=== PATIENT | male | born 1955 ===

== ENCOUNTER 2019-06-23 07:27 | Inpatient (IN) | payer BC ==
[~2019-06-23 07:27] MED LIST: Acetaminophen TAB* 325 MG PO ONE; Buffered Lidocaine 1% SYRIN* 1 ML/SYRINGE INTRADERM ONE; Famotidine TAB* 20 MG PO ONE; Gabapentin CAP(*) 300 MG PO ONE; Lactated Ringers 1000 ML Bag* 1,000 ML IV SCH; Tranexamic Acid 1,000 MG in NS 0.9% 50 ML* (outpatient use) IV SCH; celeCOXIB CAP* 200 MG PO ONE
--- OUTSIDE RECORDS SUMMARY | 2019-06-23 07:32 | XMS REPORT | Continuity of Care Document ---
:1955 External Reference #:[id number] Author Name Florentino Alvarenga M.D. (transmitted by agent of provider Soheila Aguilera) Address [address] [place] [address] Care Team Providers Name Role Phone Rik Branch MD - Internal Care Team Information [employer] Medicine Problems Active Problems Provider Date Localized, secondary osteoarthritis Florentino Alvarenga M.D. Onset: 11/22/2018 Social History Type Date Description Comments Sex Unknown ETOH Use Drinks Alcoholic Beverages Occasionally Tobacco Use Start: Unknown Patient has never smoked Smoking Status Reviewed: 04/25/19 Patient has never smoked Exercise Type/Frequency Exercises sporadically Allergies, Adverse Reactions, Alerts Description No Known Drug Allergies Medications Active Medications SIG Qnty Indications Ordering Provider Date Right Knee Professor Of History Bone on bone in 1units M17.31 Florentino Alvarenga, 2018 Brace lateral M.D. compartment, so night order selector to open laterally Ibuprofen 2 tabs by mouth Unknown 200mg every 8 hours take Tablets with food Rossy [facility] [employer] Unknown 500-32.5mg Tablets Naproxen 2 by mouth twice a Unknown 250mg day Tablets Immunizations Description No Information Available Vital Signs Date Vital Result Comment 04/25/2019 10:24am Height 69 inches 5'9" Weight 256.12 lb Heart Rate 91 /min BP Systolic Sitting 144 mmHg BP Diastolic Sitting 90 mmHg Body Temperature 98.4 F BMI (Body Mass Index) 37.8 kg/m2 11/22/2018 12:55pm Height 69 inches 5'9" Weight 254.00 lb Heart Rate 80 /min BP Systolic Recheck 130 mmHg BP Diastolic Recheck 76 mmHg Respiratory Rate 16 /min Body Temperature 97.5 F BMI (Body Mass Index) 37.5 kg/m2 Results Description No Information Available Procedures Description No Information Available Medical Devices Description No Information Available Encounters Type Date Location Provider Dx Diagnosis Office Visit 11/22/2018 Orthopedic Florentino Alvarenga, [email or web address] Unilateral 1:00[facility] [place] post-traumatic [place] osteoarthritis, right knee Assessments Date Code Description Provider 04/25/2019 [email or web address] Unilateral post-traumatic osteoarthritis, Florentino Alvarenga M.D. right knee 11/22/2018 M17.31 Unilateral post-traumatic osteoarthritis, Florentino Alvarenga M.D. right knee Plan of Treatment 04/25/2019 - Florentino Alvarenga M.D.M17.31 Unilateral post-traumatic osteoarthritis , right kneeFollow up:4 weeks after surgery Functional Status Description No Information Available Mental Status Description No Information Available Referrals Description No Information Available
[2019-06-23] MEDS ORDERED: Acetaminophen TAB* 325 MG ONE (08:27)
[2019-06-23] MEDS ORDERED: Famotidine TAB* 20 MG ONE (08:27)
[2019-06-23] MEDS ORDERED: Gabapentin CAP(*) 300 MG ONE (08:27)
[2019-06-23] MEDS ORDERED: ceFAZolin 2 GM in NS PREMIX(*) 2 GM/100 ML BAG IVPB ONE (08:28)
[2019-06-23] MEDS ORDERED: celeCOXIB CAP* 200 MG ONE (08:28)
[2019-06-23] MEDS ORDERED: Buffered Lidocaine 1% SYRIN* 1 ML/SYRINGE INTRADERM ONE (09:18)
[2019-06-23] MEDS ORDERED: Midazolam* 1 MG/ML 5 ML VIAL (5 MG) ONE (09:51)
[2019-06-23] MEDS ORDERED: fentaNYL* 50 MCG/ML 2 ML VIAL (100 MCG VIAL) ONE ×2 (09:51)
[2019-06-23] MEDS ORDERED: Propofol* 500 MG/50 ML BTL ONE (09:51)
[2019-06-23] MEDS ORDERED: Lidocaine 1% w EPI 1:100,000* MDV 20 ML VIAL ONE (10:59)
[2019-06-23] MEDS ORDERED: Bupivacaine 0.5%* 50 ML MDV VIAL ONE (10:59)
[2019-06-23] MEDS ORDERED: Sodium Citrate/Citric Acid* 15 ML UDC ONE (11:02)
[2019-06-23] MEDS ORDERED: ROPIVACAINE 5 MG/ML 30 ML BTL (0.5%) ONE (11:06)
[2019-06-23] MEDS ORDERED: EPHEDrine (Pressors)* 50 MG/ML VIAL ONE (12:00)
[2019-06-23] MEDS ORDERED: Propofol* 10 MG/ML 20 ML BTL ONE (12:59)
[2019-06-23] MEDS ORDERED: diPHENhydraMINE PO* 25 MG PO PRN (14:29)
[2019-06-23] MEDS ORDERED: Magnesium Hydroxide LIQ* 30 ML UDC PO PRN (14:29)
[2019-06-23] MEDS ORDERED: Cyclobenzaprine TAB* 10 MG PO PRN (14:29)
[2019-06-23] MEDS ORDERED: diPHENhydraMINE IV* 50 MG/ML 1 ml VIAL (BENADRYL) IV PRN (14:29)
[2019-06-23] MEDS ORDERED: Ondansetron INJ* 2 MG/ML VIAL IV PRN (14:29)
[2019-06-23] MEDS ORDERED: Ondansetron ODT TAB* 4 MG PO PRN (14:29)
[2019-06-23] MEDS ORDERED: Morphine INJ* 2 MG/ML 1 ML SYRINGE (TWO MG - NEW SYRINGE VERSION) IV PRN (14:29)
[2019-06-23] MEDS ORDERED: D5W 1/2 NS 1000 ML BAG* 1,000 ML IV SCH (15:00)
[2019-06-23] MEDS ORDERED: Ondansetron INJ* 2 MG/ML VIAL ONE (16:31)
[2019-06-23] MEDS ORDERED: Warfarin TAB(*) 10 MG PO ONE (17:00)
[2019-06-23] MEDS: oxyCODONE TAB* 5 MG TAB PO PRN ×2 (18:37→23:26)
[2019-06-23] MEDS: Ketorolac INJ* 30 MG/ML 1 ML VIAL IV PRN (19:23)
[2019-06-23] MEDS: ceFAZolin 1 GM ADVAN(*) 1 GM in NS 0.9% 50 ML* 50 ML IVPB SCH (20:06)
[2019-06-23] MEDS: Magnesium Hydroxide LIQ* 30 ML UDC PO SCH (20:24)
[2019-06-23] MEDS: Docusate CAP* 100 MG PO SCH (20:24)
[2019-06-23] MEDS: Acetaminophen TAB* 325 MG PO SCH (23:25)
--- NOTE | 2019-06-24 00:47 | OP ---
DATE OF OPERATION: 06/23/19 - ROOM #342 DATE OF : 55 SURGEON: Florentino Alvarenga MD COMPUTER SCIENCE PROFESSOR: Ayleen Boone RPA ANESTHESIA: Regional/spinal/sedation. PRE-OP DIAGNOSIS: Osteoarthritis, right knee. POST-OP DIAGNOSIS: Osteoarthritis, right knee. OPERATIVE PROCEDURE: Right total knee arthroplasty using Navio guidance. ESTIMATED BLOOD LOSS: 50 cc. COMPLICATIONS: None. INDICATIONS: Mr. Prater is a 64-year-old male who has been having continued troubles with right knee pain. He has bone on bone in the lateral compartment with significant osteoarthritic changes throughout the knee with large spurs. He had been treated conservatively with antiinflammatories, physical therapy, bracing and injections, but still have very specific limitations. I discussed with him that a total knee arthroplasty should work well to decrease his pain and improve his function. Risks of surgery such as infection, scar formation, stiffness, DVT, pulmonary embolism, hardware failure and continued pain were some of the risks discussed. He had been declared medically optimized and wished to proceed. DESCRIPTION OF PROCEDURE: The patient had a femoral nerve block placed in the holding area and was brought back to the OR. Spinal anesthesia was introduced and a Davis catheter was placed. Tourniquet was placed over the proximal right thigh and was used during the case. Total tourniquet time would be 90 minutes. Right knee was prepped and then draped. Esmarch was used to exsanguinate the leg and the tourniquet was raised. An incision was made midline and almost directly over the tibial tubercle as he had a previous knee surgery where they had come by the medial side and they also had come over by the lateral side. So , I tried to split the difference leaving at least 2 cm between the medial and lateral previous incisions. Incision was carried down through the skin and subcutaneous tissues. Ethibonds were found, it appeared he had a previous medial arthrotomy. Some of these were removed and others were just pulled apart as they were soft and frayed. Quite a few loose bodies were found and taken out of the knee. Fat pad was sharpy excised and the soft tissues were sharply elevated from the medial side of the tibia. Patella measured approximately 24 mm in thickness and a nice 10-mm cut was taken. He also had formed bone in his lateral gutter and this also was sharply excised and we later rechecked to make sure it did not bleed in case there had been a blood supply; it did not. Pins for the femoral array were then put into the femur 4 fingerbreadths about the superior pole of the patella and similarly 4 fingerbreadths below the tibial tubercle. Pins were then put into the tibia. Femoral and tibial stylus pins were also placed and the array was attached. Checkpoints including the medial and lateral malleoli, center of the tibia and center of the femur were all input into the Navio. Distal femur was then scanned into the Navio, as was the proximal tibia. Computer was run and the it gave back that he should have a 7 for the femur and 7 on the tibia and this corresponded exactly to preoperative templating. Components were adjusted until his flexion and extension gaps appeared as good, as there was just a slight amount of looseness in flexion. Once this has been adjusted to decrease that flexion gap, a bur was then used to resect the distal femur and drill holes were made using the Navio guided bur. Cutting block was then impacted into place and double checked with a flat top and gently adjusted until the alignment was within half a degree. Proximal femoral cut was taken and posterior femoral cuts were taken and then chamfer cuts were finished using the all-in-one block. Attention was turned to the tibia. Drill holes were then made using the Navio guidance and cutting block was placed. Flat top was used to make sure that the alignment was essentially perfect and then the cutting guide was pinned into place. Proximal tibial cut was then taken. A spacer block was then used to confirm flexion and extension gaps and these appeared perfect, as gaps appeared excellent. A 7- femur was then placed and the reamer was then run into the notch and then finished using the osteotome. Down on the tibia, a 7 fit perfectly and the proximal tibia was drilled and then punched. Trial instrumentation was placed and they appeared to come together quite well. Flexion stress views using the Navio were also taken and these all appeared to show excellent stability. Navio equipment was removed and patella tracking was also good. Patella sized to a 35 and holes were drilled and a trial was snapped into place. Using the trial, again the tracking was good and trial instrumentation was removed. The knee was copiously pulse lavaged as cement was being prepared. Tibia, followed by femur and patella were all cemented into place. 30 cc of 0.5% Marcaine mixed with 1% lidocaine with epinephrine was injected into the knee; 10 cc was placed between each of the femoral condyles and an additional 10 cc in the lateral gutter. While the cement was hardening, tibial pin sites were repaired using nylon sutures. Once the cement had hardened, the knee was searched for loose cement and a few small pieces were found. The knee was again copiously pulse lavaged. He was trialed again with a trial and had the same wonderful motion and stability. Regular polyethylene was then snapped into place. The knee was again copiously pulse lavaged. Tourniquet was let down and no significant bleeding was encountered. The knee was again copiously pulse lavaged and the parapatellar arthrotomy was repaired using interrupted #1 Vicryl sutures. The wound was again pulse lavaged and subcutaneous tissues were reapproximated using 2-0 Vicryl. Skin was closed using rashard. Sterile dressing and a Cryo/Cuff were applied in the OR. The patient was then awakened and stable on transfer to the recovery room. [id number]/[facility] #: [id number] NIHARIKA
[2019-06-24] MEDS: traMADol TAB* 50 MG PO PRN ×3 (03:05→18:05)
[2019-06-24] MEDS: ceFAZolin 1 GM ADVAN(*) 1 GM in NS 0.9% 50 ML* 50 ML IVPB SCH ×2 (04:04→12:28)
[2019-06-24] MEDS: Ketorolac INJ* 30 MG/ML 1 ML VIAL IV PRN ×3 (05:57→18:06)
[2019-06-24] MEDS: oxyCODONE TAB* 5 MG TAB PO PRN (06:04)
[2019-06-24 06:37] LABS: INR 1.4 (0.82-1.09)
[2019-06-24 06:38] LABS: Hematocrit 37 % (42-52); Hemoglobin 12.4 g/dL (14.0-18.0); Mean Platelet Volume 7.3 fL (7.4-10.4); Platelet Count 165 10^3/uL (150-450)
[2019-06-24 06:56] LABS: BUN/Creatinine Ratio 16.9 (8-20); Calcium 8.3 mg/dL (8.6-10.3); EGFR African American 112.9 (>60); EGFR Non-African American 93.3 (>60); Potassium 4.3 mmol/L (3.5-5.0)
[2019-06-24] MEDS: Magnesium Hydroxide LIQ* 30 ML UDC PO SCH (07:22)
[2019-06-24] MEDS: Acetaminophen TAB* 325 MG PO SCH ×2 (07:22→14:32)
[2019-06-24] MEDS: Docusate CAP* 100 MG PO SCH (07:22)
[2019-06-24] MEDS: Heparin VIAL(*) 5000 UNITS/ML VIAL (FIVE THOUSAND) SUBCUT SCH ×2 (07:25→14:31)
[2019-06-24] MEDS ORDERED: Vitamin THERAPEUTIC TAB PO SCH (09:00)
--- NOTE | 2019-06-24 09:35 | PN ---
Progress Note - Progress Note Date of Service: 06/24/19 SOAP: Subjective: []Patient seen and examined OOB in chair. Pain is well controlled. Desires DC home today, is progressing well with PT. Denies CP, SOB, dizziness or nausea. Objective: [] Gen: appears well, NAD RLE: Right knee dressing CDI, no surrounding erythema. DF/PF intact, DP2+, sensation intact to light touch distally Calves supple and nontender Assessment: []POD 1 sp RTK Plan: []WBAT PT heparin bridge to coumadin. Plan for coumadin 4 mg today and 4 mg tomorrow with recheck thurs ALT and AST were elevated preop, values remain elevated but trending towards normal. Will change dressing prior to DC, plan DC home today Vital Signs Temp 98.8 F 06/24/19 08:12 Pulse 85 06/24/19 08:12 Resp 16 06/24/19 08:12 BP 111/66 06/24/19 08:12 Pulse Ox 96 06/24/19 08:12 Intake & Output 06/23/19 06/24/19 06/24/19 18:59 06:59 18:59 Intake Total 1200 1387 220 Output Total 700 Balance 1200 687 220 Weight 251 lb 6.4 oz Intake: IV Fluids 1200 987 LR 1200 d5 1/2 ns 987 Oral 400 220 Output: Davis 700 Laboratory Last Values Hgb 12.4 g/dL (14.0-18.0) L 06/24/19 05:50 Hct 37 % (42-52) L 06/24/19 05:50 Plt Count 165 10^3/uL (150-450) 06/24/19 05:50 MPV 7.3 fL (7.4-10.4) L 06/24/19 05:50 INR (Anticoag Therapy) 1.40 (0.82-1.09) H 06/24/19 05:50 Sodium 136 mmol/L (135-145) 06/24/19 05:50 Potassium 4.3 mmol/L (3.5-5.0) 06/24/19 05:50 Chloride 105 mmol/L (101-111) 06/24/19 05:50 Carbon Dioxide 25 mmol/L (22-32) 06/24/19 05:50 Anion Gap 6 mmol/L (2-11) 06/24/19 05:50 BUN 14 mg/dL (6-24) 06/24/19 05:50 Creatinine 0.83 mg/dL (0.67-1.17) 06/24/19 05:50 Est GFR ( Amer) 112.9 (>60) 06/24/19 05:50 Est GFR (Non-Af Amer) 93.3 (>60) 06/24/19 05:50 BUN/Creatinine Ratio 16.9 (8-20) 06/24/19 05:50 Glucose 152 mg/dL (70-100) H 06/24/19 05:50 Calcium 8.3 mg/dL (8.6-10.3) L 06/24/19 05:50 AST 44 U/L (13-39) H 06/24/19 05:50 ALT 61 U/L (7-52) H 06/24/19 05:50
[2019-06-24 16:34] VITALS: BP 124/65
--- NOTE | 2019-06-24 16:38 | DS ---
Orthopedic Discharge Summary - Discharge Summary Date of Admission:06/23/19 Date of Discharge: 06/14/19 Date of Surgery: 06/23/19 Attending Orthopedic Provider: Dr Riley Pre-operative Diagnosis: Right knee osteoarthritis Operative Procedure: right total knee replacement Disposition of Patient: home with nursing services Condition of Patient: stable History: JOSE TATE is a 64 year old M with years of increasingly severe right knee pain. Patient has failed conservative management and has elected to undergo a right total knee replacement Hospital Course: JOSE was admitted to [facility] on 06/23/19. Patient underwent a right total knee replacement without complication followed by a brief recovery in PACU and transfer to the Short Stay Surgical Unit in stable condition. Physical therapy and occupational therapy also participated in this patients care. Post-op day 1: patient was alert and in no acute distress. Dressing was clean, dry and intact. Operative extremity dorsiflexion and plantarflexion intact, sensation intact to light touch distally, DP2+. Prior to discharge dressing was changed, incision was clean, dry and intact. Patient was deemed to be medically and orthopedically stable for discharge. Physical therapy goals were met. Home Medications Medication Instructions Recorded Confirmed Type Multivitamin [Multiple Vitamins] 1 tab PO QAM 06/18/19 06/23/19 History Acetaminophen TAB* [Tylenol TAB*] 975 mg PO Q8HR tab 06/24/19 Rx Aspirin TAB* [Aspirin 325 MG TAB*] 325 mg PO DAILY #30 tab 06/24/19 Rx Docusate CAP* [Colace Cap*] 100 mg PO BID PRN #90 cap 06/24/19 Rx traMADol TAB* [Ultram*] 50 mg PO Q6H PRN #56 tab MDD 8 06/24/19 Rx Discharge Instructions following Orthopedic Surgery: Activity: * Weight Bearing as tolerated * Continue physical therapy and occupational therapy exercises as shown Wound care: * OK to shower on post-op day 3, no bathing, swimming, or submerging wound. * Use gentle soap, pat dry. Cover with gauze, DARRION wrap or tape. * Visiting home nurse to do wound checks. * nursing to remove rashard and sutures in 2 weeks Call Orthopedic office for: * Increased drainage * Redness * Increased pain * Fever Go to ER with shortness of breath or chest pain. Diet: * Regular diet * Increase fluids and fiber to prevent constipation. * Continue to use stool softeners, call office if no bowel motion within 48 hours. Medications See Home Medication List in your packet for medications that you should take after discharge. DVT Prophylaxis: Coumadin Dosing: * Please note that you have been given 2 mg tablets. * Visiting home nurse to draw blood work for INR on Sunday and . * You will be provided with dose instructions on Mondays and . * If you do not receive dosing instruction on dosing, please call our office right away. Please kehinde dosing instructions on your calendar as they are provided to you. * Dosin mg coumadin 06/24 given at the hospital. 4 mg 06/25. recheck INR blood draw for further dosing instructions on 06/26. Call orthopedic office if you do not receive dosing instructions. In addition to coumadin take 325 mg aspirin daily until INR is between 2-3 Pain Control: tramadol 50 mg 1 tab for moderate pain and 2 tabs for severe pain. max 8 tabs per day. hold for sedation and wean off as soon as pain allows Antibiotics are required prior to any dental work. FOLLOW UP: Follow up with Dr. riley in 4 weeks., call for appointment Please call our office with any questions or concerns ([phone]) RX [facility]
[2019-06-24] MEDS ORDERED: Influenza VAC *QUAD* 2019-20* 0.5 ML SYRINGE IM ONE (18:00)
[2019-06-24] MEDS ORDERED: Warfarin TAB(*) 4 MG PO ONE (19:00)
[2019-06-25] MEDS ORDERED: Bisacodyl SUPP* 10 MG SUPP PR PRN (14:29)
== END 2019-06-24 18:45 | disposition home health service (06) | DRG 302 ==
LOC: AA 07:27 → SSU 16:14
PROVIDERS: ADMIT Orthopaedic Surgery; ATTEND Orthopaedic Surgery
PROC: 8E0YXBZ Computer Assisted Procedure of Lower Extremity (ICD-10-PCS; 2019-06-23)
PROC: 0SRC0J9 Replacement of Right Knee Joint with Synthetic Substitute, Cemented, Open Approach (ICD-10-PCS; principal; 2019-06-23 10:30)
DX: M17.31 Unilateral post-traumatic osteoarthritis, right knee (principal); E66.9 Obesity, unspecified; K21.9 Gastro-esophageal reflux disease without esophagitis; E78.5 Hyperlipidemia, unspecified; Z68.38 Body mass index [BMI] 38.0-38.9, adult; Z23 Encounter for immunization; Z87.442 Personal history of urinary calculi
CPT/HCPCS: 36415; 71046; 80048; 84450; 84460; 85014; 85018; 85049; 85610; 90686; A9270-GY; C1776; J0690; J1644; J1885; J2250; J2270; J2405; J2704; J2795; J3010; J3490